=== PATIENT | female | born 1970 | race Caucasian/White ===

== ENCOUNTER → 2024-03-30 13:49 | Outpatient (REF) | payer BC, SELFPAY | LOC: WDC 13:49 | PROVIDERS: ATTENDING PHYSICIAN Nurse Practitioner Family; FAMILY PHYSICIAN Student in an Organized Health Care Education/Training Program | DX: Z12.31 Encounter for screening mammogram for malignant neoplasm of breast (principal) | CPT/HCPCS: 77063; 77067 ==

== ENCOUNTER 2024-07-31 03:29 | Inpatient (IN) | payer BC, SELFPAY ==
[2024-07-31] VITALS (16 sets, daily range): BP systolic 104–143; BP diastolic 46–81; BMI 25.3; BMI 25.2
[2024-07-31 01:16] LABS: Hematocrit 41.6 % (37.0-47.0); Hemoglobin 13.7 g/dL (12.0-16.0); Mean Corp Hgb Conc. 32.9 g/dL (33.0-37.0); Mean Corpuscular Volume 81.9 fL (81.0-99.0); Mean Platelet Volume 11.4 fL (7.4-10.4); Platelet Count 206 10^3/uL (130-400); Red Blood Cell Count 5.08 10^6/uL (4.20-5.40); Red Cell Dist. Width 12.1 % (11.5-14.5); White Blood Cell Count 6.8 10^3/uL (4.8-10.8)
--- NOTE | 2024-07-31 01:18 | ED.GENMED ---
History of Present Illness
General
Chief Complaint: Cardiac Symptoms
Source: patient, previous radiology exam (Unremarkable stress echo 2018) and previous hospital records (Previous ED visit 2018 with somewhat similar chest pain. Indeterminate troponins at that time. Negative D-dimer. Evaluated by cardiology.
Underwent unremarkable stress echo.)
Exam Limitations: none
Time Seen by Provider: 07/31/24 01:03
Nursing documentation reviewed up to this point in time: agreed with
History of Present Illness
History of Present Illness:
This is a 54-year-old woman with history of irritable bowel syndrome presents with intermittent sharp, substernal chest pain that began 3 days ago. She states chest pain began somewhat abruptly 3 days ago, moderate in nature, sharp, intermittently
radiating to her anterior neck and occasionally to her left arm with intermittent nausea. No definitive aggravating or relieving factors. She states chest pain is not worsened when she takes a deep breath but occasionally notes feeling that she is
unable to to take a full deep breath. She has not had a cough, no fever no chills, no palpitations, no dizziness nor lightheadedness. Chest pain seemed worse tonight after lying down to bed prompting ED visit.
She exercises on a regular basis without symptomatology.
No recent travel, she denies leg pain or swelling.
She presented to this ED 2018 with somewhat similar chest pain. Unremarkable EKG but indeterminate troponins at that time. Negative D-dimer. Evaluated by cardiology and underwent unremarkable stress echo and discharged to home.
She takes no medicines on a daily basis.
Past History
Past History
ED Past Medical History: Other (Irritable bowel syndrome)
ED Past Surgical History: None
Social History
Tobacco: Non-smoker
Alcohol: None
Drug: None
Personal:
Living: with family
Employment: Employed
Family History
Family History: CAD (Dad with history of CAD diagnosed in his 70s.); Negative Early CAD
Phy Exam
Physical Exam
Physical Exam:
GENERAL: 54-year-old woman appears her stated age, bright and alert, pleasant, appears in no acute distress.
EYE: . anicteric
NECK: Supple, nontender, no meningismus, no significant adenopathy.
ENT: oral mucosa is moist. No rhinorrhea.
CARDIAC: Regular rate and rhythm. no murmur. No rub. No palpable chest wall tenderness.
LUNGS: Clear breath sounds bilaterally, no acute respiratory distress, no wheezes/rales/rhonchi
ABDOMEN: Soft, nondistended, without focal tenderness, normoactive BS.
NEUROLOGICAL: Alert and oriented x3, no focal neuro deficits.
SKIN: Warm and dry, normal color, skin intact. No rash.
MUSCULOSKELETAL: No C/C/E. peripheral pulses are full and equal b/l. No palpable tenderness.
PSYCH: Normal and appropriate interaction.
Scores
Heart Score for Chest Pain Patients
STEMI patient?: No
History: Moderately Suspicious
ECG: Normal
Age: >45 - <65 years
Risk Factors: No Risk Factors
Troponin: >/= 3 x Normal Limit
Heart Score for Chest Pain Patients: 4
Heart Score Risk: 20.3% MACE over next 6 weeks
Course
Orders/Labs/Results
Orders:
Orders
07/31/24 00:37
ECG [Electrocardiogram (*1)] Urgent
Reason for Study: Chest Pain
07/31/24 00:38
EKG- Treatment ONCE
07/31/24 00:49
Complete Blood Count/With Diff Urgent
Comprehensive Metabolic Panel Urgent
Troponin I Urgent
07/31/24 00:51
CXR2 [CR Chest - 2 Views ] Urgent
Comment:
Reason For Exam: chest pain and cough
07/31/24 01:16
Mag Hydrox/Al Hydrox/Simeth [Maalox] 30 ml Phenobarb/Hyoscy/Atropine/Scop [] 10 ml Viscous Lidocaine 2% [Xylocaine Viscous Cup] 10 ml PO NOW
Pantoprazole [Protonix IV] 40 mg IV NOW STA
07/31/24 01:29
Mag Hydrox/Al Hydrox/Simeth [Maalox] 30 ml .ROUTE .STK-MED ONE
Phenobarb/Hyoscy/Atropine/Scop [] 10 ml .ROUTE .STK-MED ONE
Viscous Lidocaine 2% [Xylocaine Viscous Cup] 15 ml .ROUTE .STK-MED ONE
07/31/24 01:52
D-Dimer Urgent
PTT Urgent
07/31/24 01:54
Aspirin Chewable [Low Strength Aspirin] 324 mg PO NOW STA
07/31/24 02:34
Heparin 3,800 units IV NOW STA
Nursing to Place Non Medication Order As Directed
Physician Order: PTT 6 hours after initial start of Heparin infusion
Above order entered?: Yes
07/31/24 02:45
Heparin 43695 Units/250 ml 25,000 units in 250 ml IV PER PROTOCOL
Weight to be used for heparin protocol in kilograms (kg):: 62.7
Protocol:: Cardiac Tx/Acute Coronary
PTT Goal Range to be used:: PTT 73 to 111 seconds
Order type:: Initial
INITIAL Infusion Dose (UNITS/KG/hr) & then follow protocol:: 15 units/kg/hr
Infusion Dose in UNITS/hr & then follow protocol (UNITS/hr):: 950
INFUSION RATE in mL/hr & then follow protocol (mL/hr):: 9.5
PTT less than or equal to 64 seconds:: Increase rate by 200 units/hr (+ 2 mL/hr)
PTT 64.1 to 72.9 seconds:: Increase rate by 100 units/hr (+ 1 mL/hr)
PTT 73 to 111 seconds:: Target Range. No change in rate.
PTT 111.1 to 130.9 seconds:: Decrease rate by 100 units/hr (- 1 mL/hr)
PTT 131 to 199.9 seconds:: HOLD for 1 hr. Then decrease rate by 200 units/hr (- 2 mL/hr)
PTT greater than or equal to 200 seconds:: HOLD for 2 hrs & Notify Provider. Then decrease by 200 units/hr (-
2 mL/hr)
Lab follow-up:: Each change, PTT q6h until 2 consecutive are therapeutic. Then PTT
daily.
07/31/24 02:57
Admit/Transfer Patient As Directed
Co-Sign Provider:
Level of Care: Inpatient admission
Assign to:: IVU
Physician / Group: Wicho Rush
Diagnosis: Non-STEMI
Reason for Hospitalization: Possible Catheterization in AM
IV Heparin drip
Expected length of stay greater than two midnights?: No
ELOS- Estimated Length of Stay in days: 2
I certify the patient meets the requirements for IP care: Yes
07/31/24 03:00
PRN Pain Medication Management As Directed
May give lesser potent ordered pain med per pt: Yes
preference::
Protocol:: Medication orders for pain may be administered in a
manner that supports deferring to patient preference
when the pt is:
- Requesting an ordered lesser potent pain medication.
Least to most potent pain medications are defined
as: acetaminophen < NSAID < tramadol < opioids
(morphine, oxycodone, hydromorphone).
- Requesting a lesser dose of the same medication IF
ORDERED.
- Requesting a less intrusive route of administration
if both routes are prescribed by the provider (PO <
IV).
07/31/24 03:02
Code Status As Directed
Resuscitation Status: Full Code
07/31/24 04:00
Flush (0.9% Sodium Chloride) [Flush (Nss)] See Dose Instructions IV PER PROTOCOL
07/31/24 09:25
PTT Routine
Abnormal Lab Results
07/31/24
00:49
MCHC 32.9 L g/dL
(33.0-37.0)
MPV 11.4 H fL
(7.4-10.4)
Neutrophils % 39.7 L %
(42.2-75.2)
Troponin I 0.767 H* ng/ml
07/31/24 00:49
07/31/24 00:49
Vital Signs
Initial and Last Documented VS:
Initial Vital Signs
Temp Pulse Resp BP Pulse Ox
98.5 F 57 18 143/77 100
07/31/24 00:48 07/31/24 00:48 07/31/24 00:48 07/31/24 00:48 07/31/24 00:48
Last Documented Vital Signs
Temp Pulse Resp BP Pulse Ox
98.5 F 52 18 125/78 98
07/31/24 00:48 07/31/24 03:00 07/31/24 03:00 07/31/24 03:00 07/31/24 03:00
MDM/Problems Addressed
Differential Diagnosis Includes:
Concern for ACS, GERD, musculoskeletal pain, pleurisy, less likely pneumonia.
No risk factors for thromboembolism.
EKG is unremarkable�within normal limits and unchanged from previous September 2017.
Labs are pending including troponin. Will plan to trend troponin.
Will trial GI cocktail and an IV dose of Protonix.
*Radiology
Radiology exam reviewed: preliminary read by ED provider (Chest x-ray is unremarkable. Clear lung lance. Normal heart size.)
*Pulse Oximetry
Patient hypoxic: no
*EKG
Interpreted by ED Provider?: Yes
Interpretation: normal
Comparison EKG: no changes (Unchanged from previous September 2017)
Rate: normal
Rhythm: sinus
[place]: normal axis
Interval: normal interval
QRS Pattern: normal QRS
Ischemia: no ischemia
*Honey Extractor Interpretation
Rate: normal
Interpretation: normal
Rhythm: sinus
*Critical Care Note
Total Time (30-74mins, 75-104mins- exclusive of procedures): Not Applicable
Update Note
Update Note:
Patient reports relief of anterior neck discomfort and mild relief of chest pain but continues with some chest discomfort that seems worse with deep breath but continues to deny shortness of breath.
Troponin is markedly elevated 0.767, concerning for non-STEMI.
Chest x-ray is unremarkable. All other labs are unremarkable.
Due to potential somewhat pleuritic nature of chest pain we will check D-dimer. Will give 325 mg chewable aspirin and will consult cardiology.
As above, patient has history of somewhat similar chest pain 2018 with indeterminate troponins at that time and unremarkable stress echo. No recurrent episodes of chest pain and she did not require follow-up with cardiology after that visit.
02:30
case d/w cardiology. will admit to cardiology service. She has been given asa 325 mg. will start IV heparin.
D-dimer (-)
Will continue to trend troponin.
Monitor shows sinus bradycardia and blood pressure somewhat soft 110 systolic thus we will hold off on beta-beverly as well as nitroglycerin. Currently comfortable but does continue with mild chest discomfort.
Will continue to trend troponin.
ED Attending Note
-
Portions of this chart may have been created with voice recognition software.� Occasional wrong word or��sound alike� substitutions may have occurred due to the inherent limitations of voice recognition software.
Discharge Plan
Departure
Patient Disposition: Admit
Date of Disposition: 07/31/24
Time of Disposition: 02:35
Admit to: IVU
Admit to doctor: Vidal Rush
Presentation/result/management discussed w/ accepting MD/DO: cardiology
Condition: Serious
Discharge Problem:
Non-ST elevated myocardial infarction (non-STEMI)
Interventions
Interventions:
*Risk Screen - Suicide Last Done: 07/31/24 00:36
*General Assessment Last Done: 07/31/24 00:43
*Neglect/Abuse Screening Last Done: 07/31/24 00:36
*ED- Fall Risk Assessment Last Done: 07/31/24 00:43
*ED COVID-19 Vaccine History Last Done: 07/31/24 00:43
ED- Pulmonary Assessment Last Done: 07/31/24 00:45
ED- Cardiac Assessment Last Done: 07/31/24 00:45
[2024-07-31 01:27] LABS: ALT (SGPT) 16 U/L (0-35); AST (SGOT) 23 U/L (14-36); Albumin 4.5 g/dl (3.5-5.0); Alkaline Phosphatase 72 U/L (38-126); Blood Urea Nitrogen 14 mg/dl (7-17); Calcium 9.7 mg/dl (8.4-10.2); Carbon Dioxide 27 mmol/L (22-30); Chloride 107 mmol/L (98-107); Estimated Creatinine Clearance 87 ml/min; Glucose 89 mg/dl (70-99); Potassium 3.8 mmol/L (3.5-5.1); Sodium 143 mmol/L (135-145); Total Bilirubin 0.5 mg/dl (0.2-1.3); Total Protein 7.3 g/dl (6.3-8.2); eGFR > 60.00
[2024-07-31] MEDS: MAALOX 50 PO (01:31)
[2024-07-31] MEDS: PROTONIX IV 40 MG IV (01:31)
[2024-07-31 01:41] LABS: Troponin I 0.767 ng/ml
[2024-07-31] MEDS: LOW STRENGTH ASPIRIN 324 MG PO (01:56)
[2024-07-31 01:57] LABS: % Basophils 1.3 % (0-2); % Eosinophils 1.2 % (0-6); % Immature Granulocytes 0.1 % (0-0.5); % Lymphocytes 50.1 % (20.5-51.1); % Monocytes 7.6 % (1.7-9.3); % Neutrophils 39.7 % (42.2-75.2); Absolute Basophils 0.1 10^3/uL (0-0.2); Absolute Eosinophils 0.1 10^3/uL (0-0.7); Absolute Lymphocytes 3.4 10^3/uL (1.2-3.4); Absolute Monocytes 0.5 10^3/uL (0.1-0.6); Absolute Neutrophils 2.7 10^3/uL (1.4-6.5); Nucleated Red Blood Cells % 0 %
[2024-07-31 02:08] LABS: APTT 31.1 Sec (23.4-35.0)
[2024-07-31 02:11] LABS: D-Dimer < 0.27 ug/mlFEU (0.00-0.50)
[2024-07-31] MEDS: HEPARIN 3800 UNITS IV (03:21)
[2024-07-31] MEDS: HEPARIN 25000 UNITS/250 ML IV (03:22)
--- NOTE | 2024-07-31 03:22 | HPS.HSE ---
Family Physician
-
Family Physician: Helena Chaves MD
Chief Complaint
-
'chest pain'
History of Present Illness
54 y/o patient, present to ER with the c/o 'shooting' chest pressure, nausea since Tuesday. She states substernal chest pressure which was radiating towards her both arms that lasted for one hour on Tuesday, then noticed similar discomfort but less
sharp in nature on Tuesday and Tuesday. Reports chest pain seemed worse laying down last night which noted to be more radiating towards left upper back which prompted her to come to ER. Denies any aggravating factors, and pain was 'some what'
relieved after taking one ASA. Denies shortness of breath, chills, fever at present. Denies abdomen pain LBM 5/26, no nausea or vomiting at present, voiding without difficulty. she is active and exercises on regular basis.
Medical History
Past Medical History
Past Medical History: Reports Other
Additional Past Medical History:
IBS
Past Surgical History: Reports None
Social History
Tobacco: Non-smoker
Alcohol: None
Drug: None
Living: With Family
Family History
Family History: Not pertinent
Allergies / Home Medications
Allergies reflects when Allergies were last updated in [employer].
Home Medications with original date entered in [employer]
Allergy/Medication List:
Allergies
Allergy/AdvReac Type Severity Reaction Status Date / Time
No Known Allergies Allergy Unverified 09/27/17 20:52
Home Medications
No Meds [No Current Medications] 07/31/24
Review of Systems
-
History Source: Patient
A 12 point ROS was completed and negative except as noted: Yes
Constitutional: Reports No Symptoms
EENT: Reports No Symptoms
Respiratory: Reports No Symptoms
Cardiac: Reports Chest Pain
Abdomen/GI: Reports No Symptoms
: Reports No Symptoms
Musculoskeletal: Reports No Symptoms
Skin: Reports No Symptoms
Neurological: Reports No Symptoms
Endocrine: Reports No Symptoms
Hematologic/Lymphatic: Reports No Symptoms
Psych: Reports No Symptoms
Physical Exam
Vital Signs
Vital Signs
Temp Pulse Resp BP Pulse Ox
98.5 F 52 18 125/78 98
07/31/24 00:48 07/31/24 03:00 07/31/24 03:00 07/31/24 03:00 07/31/24 03:00
Physical Exam
General: Well Developed, Well Nourished and No Apparent Distress
HEENT: NormoCephalic, Moist mucous membranes and Atraumatic
Respiratory: Clear and Non Labored Respirations
Cardiac: S1/S2 and Regular Rhythm
Breast: Deferred by me
GI: Soft, Non Tender, Non Distended and Normal Bowel Sounds
Rectal: Deferred by Provider
Genito-urinary: Clear Urine and No costovertebral tender
Musculoskeletal: No Clubbing, No Cyanosis and No Edema
Skin: Warm, Dry and Rash
Neuro: Awake, Oriented, AO x 3 and Nonfocal/grossly intact
Hematologic/Lymphatic: No Lymphadenopathy
Psych: Calm and Intact Judgment/Insight
Laboratory Results
-
07/31/24 00:49
07/31/24 00:49
Laboratory Results
APTT 31.1 Sec (23.4-35.0) 07/31/24 01:52
Total Bilirubin 0.5 mg/dl (0.2-1.3) 07/31/24 00:49
AST 23 U/L (14-36) 07/31/24 00:49
ALT 16 U/L (0-35) 07/31/24 00:49
Alkaline Phosphatase 72 U/L (38-126) 07/31/24 00:49
Troponin I 0.767 ng/ml H* 07/31/24 00:49
Data Reviewed
-
Medical Tests (Nuc Med, Echo, EKG etc): Report Reviewed by me
Lab Data: Labs Reviewed by me
Impression/Plan
-
54 y/o patient with the complain of chest pain
# chest pain likely due to Non ST elevated Myocardial Infarction
- Trop 0.767
-EKG NSR
-chest Xray report pending
-Heparin drip continued
-Trend Troponin
-EKG
-CMP Lipid panel CBC
-Continue Atorvastatin
- Admit to Dr. Rush
-Admit to IVU
# IBS
# Chest pain in 2018
-negative D-Dimer,
-stress echo unremarkable
-EKG unremarkable
-Troponin 0.070 0.059 0.023
Full code
SCD's
[2024-07-31 05:16] LABS: Hematocrit 39.8 % (37.0-47.0); Hemoglobin 13.2 g/dL (12.0-16.0); Mean Corp Hgb Conc. 33.2 g/dL (33.0-37.0); Mean Corpuscular Hgb 26.9 pg (27.0-31.0); Mean Corpuscular Volume 81.1 fL (81.0-99.0); Mean Platelet Volume 11.8 fL (7.4-10.4); Platelet Count 208 10^3/uL (130-400); Red Blood Cell Count 4.91 10^6/uL (4.20-5.40); Red Cell Dist. Width 12.2 % (11.5-14.5); White Blood Cell Count 6.6 10^3/uL (4.8-10.8)
[2024-07-31 05:47] LABS: Troponin I 0.787 ng/ml
--- NOTE | 2024-07-31 06:06 | PTCARENOTE ---
Pt. rec'd into room 2253 from ED AAOx3, VSS, NSR-SB on the monitor, heparin gtt infusing at 950 units/hr. Complaining of substernal chest pain, level 5 out of 10 - burning - worse with deep inspiration. States pain is better than prior to coming
to the hospital. Repeat EKG/troponin completed, hospitalist KIAH updated. Order for morphine x 1 obtained and offered to pt. but she declined, stating pain wavers and has improved since coming to the floor. Otherwise plan of care discussed with
pt., understanding verbalized. NPO for probable cath later today. Pt. resting quietly.
[2024-07-31 06:08] LABS: ALT (SGPT) 14 U/L (0-35); AST (SGOT) 23 U/L (14-36); Albumin 4.1 g/dl (3.5-5.0); Alkaline Phosphatase 73 U/L (38-126); Blood Urea Nitrogen 10 mg/dl (7-17); Calcium 9.1 mg/dl (8.4-10.2); Carbon Dioxide 25 mmol/L (22-30); Chloride 113 mmol/L (98-107); Estimated Creatinine Clearance 87 ml/min; Glucose 92 mg/dl (70-99); HDL Cholesterol 72 mg/dl; LDL Cholesterol, Calculated 81 mg/dl; Potassium 3.6 mmol/L (3.5-5.1); Sodium 144 mmol/L (135-145); Total Bilirubin 0.4 mg/dl (0.2-1.3); Total Cholesterol 163 mg/dl (50-199); Total Protein 6.4 g/dl (6.3-8.2); Triglyceride 53 mg/dl (10-149); Very Low Density Lipoprotein 10 mg/dl (0-30); eGFR > 60.00
--- NOTE | 2024-07-31 08:19 | CON.CAR ---
Consultation
Consultation Request
Date/Time Consultation Requested: 07/31/24
Date/Time Consultation Performed: 07/31/24
Reason for Consultation: chest pain
Medical History
-
Chief Complaint: chest pain
History of Present Illness:
54-year-old woman with no significant past cardiac history presented to the ER with recurrent chest pain. Patient chest pain started on Tuesday when she came out for her usual 4 mile run. However she could not do her run due to ongoing chest pain.
Pain was sharp discomfort in the middle of the chest radiating to her left arm. She rested and pain disappeared. She had somewhat different but recurrent chest pain on Tuesday and Tuesday and on Tuesday she presented with similar chest pain with
chest pressure and numbness and radiation to both arms. The pain was mild to moderate and was fluctuating in nature. Associate with dyspnea on exertion and got better with somewhat of rest. In the ER patient was treated with aspirin and EKG was done
that shows no significant ST or T wave changes. Patient's troponin was drawn that was marginally elevated. Serial troponin is being done.
Patient did have a workup for her chest pain back 15 years ago in 2007 at which time stress echo was done that was negative for any inducible ischemia. Since then she has not had any chest pain and now she presented with another episode of chest
pain which is quite severe for her but has fluctuated. At this time. Her pain is 1 out of 10.
Past Medical History
Past Medical History: Other (Irritable bowel syndrome)
Social History
Tobacco: Non-Smoker
Alcohol: None
Drug: None
Living: With Family
Employment: Employed
Family History
Family History: Reviewed & Not Pertinent
Allergies / Home Medications
Allergy/AdvReac Type Severity Reaction Status Date / Time
No Known Allergies Allergy Unverified 09/27/17 20:52
�Medication �Instructions �Recorded �Confirmed �Type
No Meds [No Current Medications] 07/31/24 07/31/24 History
Review of Systems
-
All other systems: Negative unless noted
Physical Exam
Vital Signs
Temp Pulse Resp BP Pulse Ox
98.0 F 52 16 126/69 99
07/31/24 08:09 07/31/24 08:09 07/31/24 08:09 07/31/24 08:09 07/31/24 08:09
Lab Results
07/31/24 04:34
07/31/24 04:34
Troponin I 0.787 ng/ml H* 07/31/24 04:34
Physical Exam
General: Well Developed, Well Nourished and No Apparent Distress
HEENT: Normocephalic and Anicteric
Respiratory: Clear, Wheezes and Crackles
Cardiac: S1/S2 and Regular Rhythm; Negative Murmur
GI: Soft, Non Tender and Non Distended
Musculoskeletal: No Clubbing, No Cyanosis and No Edema
Skin: Warm and Dry
Neuro: Awake, Alert, Oriented and AO x 3
Impression / Plan
-
54-year-old woman with no significant past cardiac history presented with intermittent chest pain for the past 3 days.
Non-ST elevation myocardial infarction
- Patient is ruled in with acute coronary syndrome with troponin leak.
- Status post GI cocktail with minimal effect.
- Patient's troponin at the time of arrival to the hospital was 0.767 and repeat troponin is 0.787
- Patient is already treated with aspirin, heparin, Lipitor and oxygen. Give nitroglycerin as needed
- Continue heparin drip
- Morphine as needed
- Plan for echo this morning
- Keep n.p.o. for cardiac catheterization today
Data Reviewed
-
EKG: Tracing Personally Visualized and interpreted and Report Reviewed by me
Radiology: Report Reviewed by me
Medical Tests (Nuc Med, Echo etc): Image Personally Visualized and interpreted
Labs: Labs Reviewed by me and Discussed with Physician
Old Records: Reviewed
[2024-07-31 09:15] LABS: Glycohemoglobin (HgbA1c) 5.4 % (4.0-5.6)
--- NOTE | 2024-07-31 09:30 | PTCARENOTE ---
Received pt at change of shift resting in bed. Heparin gtt infusing at 950 units/hr. pt reports chest pressure as 5/10 and states it, 'feels like someone is sitting on my chest.' She also c/o SOB. SpO2 99% on RA. Dr. Rush was in room talking with
pt. pt declined any pain medication at this time. Trop and EKG obtained. pt remains NPO this AM for cathead worker today. Call constantino within reach.
[2024-07-31] MEDS: NITROSTAT (SUBLINGUAL) 0.4 MG SL (10:42)
[2024-07-31] MEDS: NSS 1000 IV (10:44)
--- NOTE | 2024-07-31 10:58 | PTCARENOTE ---
Pt continues to have 5/10 chest pressure/pain. Radha Joy, DETACHER on floor. Sublingual nitro ordered. Administered per order. pt states pain level went down to 4/10. Gave report to flower shop laborer/designer and on way. IV normal saline infusing at 100 mL/hr. Heparin gtt
currently off due to high PTT assessment.
--- NOTE | 2024-07-31 10:59 | W.PN.UPDATE ---
Update Note
Progress Note Update
Called by nurses to reassess pt as she had continued to have 5/10 mid sternal CP. She states it has been constant since admission. At times it can radiate to back or L arm. Currently does not have the L arm or back symptom. No diaphoresis or
nausea associated. She states pain was much worse on Tuesday when symptoms started. EKG similar to admit. Peak troponin so far 1.2 IV NSS initiated with BP's 110-120/60-70. Sl. nitro x 1 . Pt states pain now 2/5 mid sternal. laundry laborer is coming to
get pt.
--- NOTE | 2024-07-31 12:11 | ITS.CL.CATH ---
Community Development Manager - Catheterization
Cardiac Catheterization
Procedure Report:
CARDIAC CATHETERIZATION REPORT
Date of Procedure: 07/31/2024
Referring: Wicho Rush M.D.
INDICATION: Non-ST elevation myocardial infarction.
PROCEDURE:
1. Left heart catheterization
2. Coronary angiography.
A total of 18 minutes of procedural/moderate sedation was utilized. An independent medical nurse was present to assist with and help manage the patient's level of consciousness and physiologic status.
ACCESS:
1. 6 [place] right bradycardia artery using a modified Seldinger technique delete.
CATHETERS:
1. 5 [place] JR4.
2. 5 [place] JL 3.5.
HEMODYNAMIC DATA
Weight (kg): 62.1
AO (s/d/x, mmHg): 107/68/87
LV (s/x mmHg): 111/12
LEFT VENTRICULOGRAPHY: Not performed.
CORONARY ANGIOGRAPHY
Dominance: Right.
Left Main: Normal size, bifurcating vessel. There is no coronary artery disease.
LAD: Normal size vessel giving rise to 1 significant diagonal. There is no coronary artery disease.
Ramus: Congenitally absent.
Circumflex: Normal size vessel giving rise to 3 obtuse marginals. There is no coronary artery disease. The distal marginals are severely tortuous.
RCA: Large size, dominant vessel with a significant posterolateral arcade. There are tandem, 90% lesions with tapering and severely reduced flow in the mid and distal RPDA consistent with SCAD.
INTERVENTION(S)
None.
Closure Device: Vascular band.
Radiation (mGy): 206.53
DAP (cm2.Gy): 16.5990
Fluoroscopy time (minutes): 2.6
CONCLUSIONS
1. Right dominant circulation with no atherosclerotic coronary disease but tandem 90% lesions with vessel tapering in the mid and distal RPDA consistent with spontaneous coronary artery dissection (SCAD).
2. Normal filling pressures (LVEDP = 12 mmHg at 62.1 kg).
RECOMMENDATIONS:
1. Expectant management after cardiac catheterization via right radial approach.
2. Limited weight bearing on the right wrist for one week.
3. Medical management of SCAD. Dual antiplatelet therapy with aspirin and clopidogrel for 2 weeks, followed by aspirin monotherapy for 12 months.
4. Referral to cardiac rehab (should not start before 2-3 weeks of recovery).
5. The patient should have limited physical activity, not exceeding 85% maximum predicted heart rate and should avoid lifting any amount of weight that would cause prolonged Valsalva.
Copy to: Helena Chaves M.D., Wicho Rush M.D.
Иван Llanos DO, FACC, FACP
[2024-07-31] MEDS: PLAVIX 75 MG PO (12:45)
[2024-07-31] MEDS: TYLENOL 650 MG PO ×2 (13:40→18:02)
[2024-07-31] MEDS: LIPITOR 10 MG PO (18:02)
--- NOTE | 2024-07-31 21:49 | PTCARENOTE ---
Pt rec'd at change of shift awake,alert no c/o cp. right radial site intact. good radial pulse. Pt did c/o feeling little dizzy given Tylenol at 1800 by previous shift for h/a which has improved. At 2100 pt stated dizziness is gone. Pt still
encouraged to call nursing when ambulating.
[2024-08-01 02:53] VITALS: BP 118/46
--- NOTE | 2024-08-01 03:20 | PTCARENOTE ---
Pt with c/o 8 out of 10 h/a. Pt states she gets migraines at home usually takes Motrin. Reached out to house Funeral Service Licensee [employer] for PRN pain medication stronger than Tylenol. Ice pack applied at this time.
[2024-08-01] MEDS: ULTRAM 25 MG PO (03:30)
--- NOTE | 2024-08-01 03:37 | PTCARENOTE ---
Ultram given for H/A. call constantino within reach. Pt continues to utilize ice pack and dark room. No c/o cp
[2024-08-01 03:59] LABS: Hematocrit 38.9 % (37.0-47.0); Hemoglobin 12.7 g/dL (12.0-16.0); Mean Corp Hgb Conc. 32.6 g/dL (33.0-37.0); Mean Corpuscular Hgb 26.8 pg (27.0-31.0); Mean Corpuscular Volume 82.2 fL (81.0-99.0); Mean Platelet Volume 11.8 fL (7.4-10.4); Platelet Count 181 10^3/uL (130-400); Red Blood Cell Count 4.73 10^6/uL (4.20-5.40); Red Cell Dist. Width 12.2 % (11.5-14.5); White Blood Cell Count 5.5 10^3/uL (4.8-10.8)
[2024-08-01 04:26] LABS: Blood Urea Nitrogen 6 mg/dl (7-17); Carbon Dioxide 24 mmol/L (22-30); Chloride 112 mmol/L (98-107); Estimated Creatinine Clearance 87 ml/min; Glucose 91 mg/dl (70-99); Potassium 4.1 mmol/L (3.5-5.1); Sodium 141 mmol/L (135-145); eGFR > 60.00
[2024-08-01 07:26] VITALS: BP 107/59
--- NOTE | 2024-08-01 08:17 | W.PN.CD ---
Today's Communication / Plan
-
- Repeat another troponin today.
- Likely discharge later today.
- Plan for echo in 3 months.
- Aspirin, Plavix for 1 month then aspirin 81 mg alone for 1 year
- Metoprolol 25 mg once a day.
Impression / Plan
-
54-year-old woman with no significant past cardiac history presented with intermittent chest pain for the past 3 days.
Non-ST elevation myocardial infarction
- S/p left heart cath on 07/31/2024
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
- Right dominant circulation with no atherosclerotic coronary disease but tandem 90% lesions with vessel tapering in the mid and distal RPDA consistent with spontaneous coronary artery dissection (SCAD).
- Patient is chest pain free this morning.
- Started on aspirin/Plavix
- Plan for DAPT for 1 month then aspirin alone for 12 months.
- Start metoprolol 25 mg once a day.
- Limit strenuous exercise and avoid significant tachycardia.
- Okay to go back to work but avoid 4 mile run every day for at least the next 2 months.
- Troponin was still elevated likely due to cardiac catheterization and coronary instrumentation.
- Repeat another troponin today.
- Likely discharge later today.
- Plan for echo in 3 months.
Echo 07/31/2024
LV ejection fraction is 55-60% by Bertrand's method of discs.
Hypokinesis of the mid to apical inferior wall and mid inferoseptal wall
segment.
No significant valvular disease.
Left heart cath 07/31/2024
Dominance: Right.
Left Main: Normal size, bifurcating vessel. There is no coronary artery disease.
LAD: Normal size vessel giving rise to 1 significant diagonal. There is no coronary artery disease.
Ramus:Congenitally absent.
Circumflex: Normal size vessel giving rise to 3 obtuse marginals. There is no coronary artery disease. The distal marginals are severely tortuous.
RCA: Large size, dominant vessel with a significant posterolateral arcade. There are tandem, 90% lesions with tapering and severely reduced flow in the mid and distal RPDA consistent with SCAD.
Physical Exam
Vital Signs/Labs
Vital Signs
Temp Pulse Resp BP Pulse Ox
97.9 F 60 14 118/46 98
08/01/24 08:04 08/01/24 02:53 08/01/24 08:04 08/01/24 02:53 08/01/24 08:04
07/31/24 08/01/24 08/02/24
06:59 06:59 06:59
Actual Weight 62.4 kg
08/01/24 03:16
08/01/24 03:16
APTT 136.0 Sec (23.4-35.0) H 07/31/24 09:39
Triglycerides 53 mg/dl (10-149) 07/31/24 04:34
LDL Cholesterol, Calc 81 mg/dl 07/31/24 04:34
VLDL Cholesterol, Calc 10 mg/dl (0-30) 07/31/24 04:34
HDL Cholesterol 72 mg/dl 07/31/24 04:34
LAB Results
07/31/24 07/31/24 07/31/24
00:49 04:34 06:57
Troponin I 0.767 H* 0.787 H* Cancelled
07/31/24 07/31/24 08/01/24
09:39 16:05 03:16
Troponin I 1.200 H* D 1.960 H* D 2.740 H*
Physical Exam
Constitutional: No acute distress and Comfortable
EENT: Anicteric and Moist mucous membranes
Cardiovascular: Rhythm & rate is regular, Pedal edema is absent and JVD pressure is normal
Respiratory: Respiratory effort normal, Wheeze Absent and Crackles Absent
GI: Soft, Distention absent, Non tender and Normal bowel sounds
Neuro/Psych: Alert, Oriented and AO x 3
Other: Cath Site
Data Reviewed
-
Date of Service: August 01, 2024
Medical Decision Making: Reviewed Test Results, Test Interpretation and Review of Case with other Provider
EKG: Tracing Personally Visualized and interpreted
Echo: Report Reviewed by me
Labs: Labs Reviewed by me
Old Records: Reviewed
[2024-08-01 08:50] VITALS: BP 107/67
[2024-08-01] MEDS: PLAVIX 75 MG PO (08:52)
[2024-08-01] MEDS: LOW STRENGTH ASPIRIN 81 MG PO (08:52)
[2024-08-01] MEDS: TOPROL XL 25 MG PO (08:52)
--- NOTE | 2024-08-01 11:09 | W.PN.UPDATE ---
Update Note
Progress Note Update
Patient's repeat troponin is coming down now. Okay for discharge.
[2024-08-01 11:33] VITALS: BP 100/60
[2024-08-01 15:07] VITALS: BP 108/36
[2024-08-01 15:08] VITALS: BP 106/59
--- NOTE | 2024-08-01 15:54 | DOWNTIME ---
There was a [employer] Professor Downtime on 08/01/2024 from 1230 to 08/01/2024 at 1550. Downtime documentation of patient's care, including medication administrations, has been reconciled in the electronic record per guidelines. Refer to the
patient's paper chart under the miscellaneous tab to see printed paper medication records and downtime forms.
--- NOTE | 2024-08-01 15:54 | W.DS.TRANS ---
DC Summary - Insurance Sales Associate
-
Discharge Instructions:
Discharge Diagnosis/Procedures NSTEMI
Cardiac catheterization 07/31/2024
SCAD
Diet Low Sodium,Low Cholesterol
Activity No strenuous activity
Driving Restrictions No driving for 24 hours
Bathing Restrictions None
Other Services Cardiac Rehab
Instructions:
Stand-Alone Forms: DC Instructions- Cath/EP Lab
Changes to Home Medications: Yes
Discharge Medications:
DC Medications w/original date entered in [employer]
aspirin 81 mg chewable tablet 81 mg PO DAILY #90 tabs 08/01/24
atorvastatin 10 mg tablet 10 mg PO QPM Heart disease/condition #90 tabs 08/01/24
clopidogrel 75 mg tablet 75 mg PO DAILY #14 tabs 08/01/24
metoprolol succinate 25 mg tablet,extended release 24 hr 25 mg PO DAILY #30 tabs 08/01/24
nitroglycerin 0.4 mg sublingual tablet 0.4 mg sublingual [id number] PRN chest pain #25 tabs 08/01/24
Home Medication Changes
All medications are new
Pending Results: No
--- NOTE | 2024-08-01 16:09 | CM ---
CM following for DC planning needs.
Met w/ patient at bedside to complete initial assessment.
Pt. informs that she resides with spouse in a private home. She is functionally indep. at baseline w/ ADLs, mobility without use of any assisted device.
Anticipated DC plan is for home without needs.
== END 2024-08-01 17:22 | disposition home or self-care (01) | DRG 280 ==
LOC: IVU 03:29
PROVIDERS: Internal Medicine Cardiovascular Disease; Nurse Practitioner; Nurse Practitioner Adult Health; Nurse Practitioner Gerontology; ADMITTING PHYSICIAN Internal Medicine Cardiovascular Disease; EMERGENCY PHYSICIAN Emergency Medicine; FAMILY PHYSICIAN Student in an Organized Health Care Education/Training Program
PROC: 4A023N7 Measurement of Cardiac Sampling and Pressure, Left Heart, Percutaneous Approach (ICD-10-PCS; 2024-07-31)
PROC: B2111ZZ Fluoroscopy of Multiple Coronary Arteries using Low Osmolar Contrast (ICD-10-PCS; 2024-07-31)
DX: I21.4 Non-ST elevation (NSTEMI) myocardial infarction (principal); I25.42 Coronary artery dissection; K58.9 Irritable bowel syndrome, unspecified; Z82.49 Family history of ischemic heart disease and other diseases of the circulatory system
CPT/HCPCS: 71046; 80048; 80053; 80061; 83036; 84484; 85025; 85027; 85379; 85730; 93005; 93306; 93458; 96365; 96375; 99152; 99153; 99285; C1894; Q9967

== ENCOUNTER → 2024-08-08 12:44 | Outpatient (REF) | payer BC, SELFPAY | LOC: RAD 12:44 | PROVIDERS: ATTENDING PHYSICIAN Student in an Organized Health Care Education/Training Program | DX: J69.0 Pneumonitis due to inhalation of food and vomit (principal) | CPT/HCPCS: 71046 ==

== ENCOUNTER → 2024-08-15 13:27 | Outpatient (REF) | payer BC, SELFPAY | LOC: RAD 13:27 | PROVIDERS: ATTENDING PHYSICIAN Student in an Organized Health Care Education/Training Program | DX: I25.42 Coronary artery dissection (principal) | CPT/HCPCS: 70496; 70498; 71275; 74174; Q9967 ==

== ENCOUNTER → 2024-08-16 15:33 | Outpatient (REF) | payer BC, SELFPAY | LOC: HWRCS 15:33 | PROVIDERS: ATTENDING PHYSICIAN Student in an Organized Health Care Education/Training Program | DX: R07.9 Chest pain, unspecified (principal) | CPT/HCPCS: 93306 ==

== ENCOUNTER 2024-08-28 08:46 | Outpatient (RCR) | payer BC, SELFPAY | END 2024-08-28 23:59 | disposition home or self-care (01) | LOC: CRHB 08:46 | PROVIDERS: ATTENDING PHYSICIAN Internal Medicine Cardiovascular Disease | DX: I21.4 Non-ST elevation (NSTEMI) myocardial infarction (principal) | CPT/HCPCS: 93798 ==